=== PATIENT | female | born 2000 | race Caucasian/White ===

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

== ENCOUNTER 2019-05-10 12:13 | Emergency (ER) | payer SELFPAY ==
[~2019-05-10] VITALS: Ht 160 cm; Wt 72.6 kg
[2019-05-10] MEDS ORDERED: SODIUM CHLORIDE 0.9% 1,000 ML IV ONE (12:30)
[2019-05-10] MEDS ORDERED: ONDANSETRON HCL 4 MG/2 ML VIAL IV ONE (12:30)
[2019-05-10 13:00] LABS: Basophils # (auto) 0.1 uL; Basophils % (auto) 0.7 % (0.0-2.0); Eosinophils # (auto) 0 uL; Eosinophils % (auto) 0.4 % (0.0-7.0); Hematocrit 38.6 % (36.0-46.0); Hemoglobin 13.5 g/dL (12.2-16.2); Lymphocytes # (auto) 0.9 uL; Lymphocytes % (auto) 9.7 % (10.0-50.0); Mean Corpuscular Hemoglobin 29.3 pg (28.0-32.0); Mean Corpuscular Hgb Conc. 34.9 g/dL (32.0-36.0); Mean Corpuscular Volume 83.9 fL (80.0-100.0); Monocytes # (auto) 0.7 uL; Monocytes % (auto) 7.5 % (0.0-12.0); Neutrophils # (auto) 7.5 uL; Neutrophils % (auto) 81.7 % (37.0-80.0); Platelet Count (auto) 369 10^3/uL (140-450); White Blood Cell 9.2 10^3/uL (4.4-10.8)
[2019-05-10 13:13] LABS: Albumin 4.2 g/dL (3.4-5.0); BUN/Creatinine Ratio 16.7; Potassium 3.9 mmol/L (3.5-5.1)
[2019-05-10 13:16] LABS: Bilirubin, Total 0.5 mg/dL (0.2-1.0); Total Protein 8.4 g/dL (6.4-8.2)
[2019-05-10 14:29] VITALS: BP 121/82
[2019-05-10 15:20] LABS: Urine Bacteria FEW /hpf (None Seen); Urine Blood Negative /uL (Negative); Urine Mucus FEW (None Seen); Urine Specific Gravity 1.025 (1.001-1.035); Urine WBC 53 /hpf (0 - 5)
== END 2019-05-10 15:13 | disposition home or self-care (01) ==
LOC: ER 12:21
DX: J20.9 Acute bronchitis, unspecified (principal); R11.10 Vomiting, unspecified; Z90.89 Acquired absence of other organs
CPT/HCPCS: 36415; 71046; 80053; 81001; 85025; 96374; 99284; J2405; J7030

== ENCOUNTER 2019-07-25 01:41 | Emergency (ER) | payer MEDICAID ==
[~2019-07-25] VITALS: Ht 160 cm; Wt 82.1 kg
[2019-07-25] MEDS ORDERED: IBUPROFEN 800 MG TAB PO ONE (02:15)
[2019-07-25 02:49] LABS: Urine Bacteria NONE SEEN /hpf (None Seen); Urine Blood 2+ /uL (Negative); Urine Specific Gravity 1.025 (1.001-1.035); Urine WBC 5 /hpf (0 - 5)
[2019-07-25 02:50] LABS: Hematocrit 36.4 % (36.0-46.0); Hemoglobin 12.3 g/dL (12.2-16.2); Mean Corpuscular Hemoglobin 28.7 pg (28.0-32.0); Mean Corpuscular Hgb Conc. 33.7 g/dL (32.0-36.0); Platelet Count (auto) 287 10^3/uL (140-450); Red Blood Cells 4.28 10^6/uL (4.0-5.20); Red Cell Distribution Width 13.1 % (11.8-14.3); White Blood Cell 4.1 10^3/uL (4.4-10.8)
[2019-07-25 02:53] LABS: Band Neutrophils % (manual) 0; Basophils % (manual) 0 (0.0-2.0); Blast Cells 0; Eosinophils % (manual) 0 (0-7); Metamyelocytes % 0; Myelocytes % 0; Promyelocytes % 0; Reactive Lymphocytes 0
[2019-07-25 03:08] LABS: Albumin 3.9 g/dL (3.4-5.0); Calcium 8.4 mg/dL (8.5-10.1); Potassium 3.9 mmol/L (3.5-5.1)
[2019-07-25 03:11] LABS: Bilirubin, Total 0.2 mg/dL (0.2-1.0)
[2019-07-25 03:32] LABS: Lymphocytes % (manual) 20 (10.0-50.0); Monocytes % (manual) 19 (0-12)
[2019-07-25 08:11] VITALS: BP 144/95
== END 2019-07-25 10:10 | disposition home or self-care (01) ==
LOC: ER 01:41
DX: J09.X2 Influenza due to identified novel influenza A virus with other respiratory manifestations (principal)
CPT/HCPCS: 36415; 71045; 80053; 81001; 85007; 85027; 87804

== ENCOUNTER 2020-03-07 13:19 | Emergency (ER) | payer MEDICAID ==
[~2020-03-07] VITALS: Ht 160 cm; Wt 72.6 kg
[2020-03-07 13:36] VITALS: BP 153/96
[2020-03-07 15:36] LABS: Urine Bacteria NONE SEEN /hpf (None Seen); Urine Blood Negative /uL (Negative); Urine Mucus FEW (None Seen); Urine Specific Gravity 1.022 (1.001-1.035); Urine WBC 267 /hpf (0 - 5); Urine WBC Clumps PRESENT /hpf (None Seen)
== END 2020-03-07 16:11 | disposition home or self-care (01) ==
LOC: ER 13:19
DX: N39.0 Urinary tract infection, site not specified (principal); Z90.49 Acquired absence of other specified parts of digestive tract
CPT/HCPCS: 81001; 81025